=== PATIENT | female | born 1970 | race Caucasian/White ===

== ENCOUNTER 2018-12-19 13:45 | Emergency (ER) | payer OTHER ==
[~2018-12-19] VITALS: Ht 152.4 cm; Wt 53.5 kg
[2018-12-19 13:46] VITALS: BP 147/87
[2018-12-19] MEDS ORDERED: FLEXERIL PO (14:30)
[2018-12-19] MEDS ORDERED: MEDROLDOSEPACK PO (14:30)
[2018-12-19] MEDS ORDERED: IBUPROFEN 600600 M1 PO (14:30)
== END 2018-12-19 15:15 | disposition home or self-care (01) ==
LOC: ER 13:45
DX: S29.012A Strain of muscle and tendon of back wall of thorax, initial encounter (principal); I10 Essential (primary) hypertension; E07.9 Disorder of thyroid, unspecified; G89.29 Other chronic pain; Z88.5 Allergy status to narcotic agent; Z88.8 Allergy status to other drugs, medicaments and biological substances; X58.XXXA Exposure to other specified factors, initial encounter; Y93.89 Activity, other specified; Y92.89 Other specified places as the place of occurrence of the external cause; Y99.8 Other external cause status